=== PATIENT | female | born 1945 | race Caucasian/White ===

== ENCOUNTER → 2016-11-19 10:52 | Outpatient (CLI) | payer MEDICARE, BC ==
[2016-05-09 13:20] VITALS: BMI 36.6
[~2016-11-19 10:52] MED LIST: ALDACTONE25 MG PO; ARMOUR THYROID120 MG PO; ASPIRIN81 MG PO; CARDIZEM30 MG PO; CELEXA20 MG PO; COLACE100 MG PO; COUMADIN5 MG PO; ELIQUIS5 MG PO; FLORAJEN3 CAPS460 MG PO; HCTZ25 MG PO; HEMOCYTE PLUS C1 CAP PO; HYDROCODON-ACE1 EAC7 PO; K-DUR20 MEQ PO; KLONOPIN1 MG PO; LASIX40 MG PO; LOPRESSOR25 MG PO; MIRALAX17 GM PO; ONDANSETRON4 MG/2 M3 IV; OXYCONTIN10 MG PO; PATIENT'S OWN MEDICA PO; PERCOCET 10/3251 TA1 PO; PHENERGAN25 MG/ML IM; REGLAN INJ10 MG/2 ML IV; SALINE FLUSH10 ML IV; SYNTHROID100 MCG PO; ULTRAM50 MG PO; VANCOMYCIN 1 GM/1 G1 IV; ZIAC 5/6.25 MG1 TAB PO
== END | disposition home or self-care (01) ==
LOC: D.CT 11-15 11:00
DX: M24.542 Contracture, left hand (principal)